=== PATIENT | female | born 1970 | race Caucasian/White ===

== ENCOUNTER 2016-07-21 18:05 | Emergency (ER) | payer OTHER ==
[2016-07-21 19:01] LABS: BILIRUBIN NEGATIVE (NEGATIVE); BLOOD NEGATIVE Ery/uL (NEGATIVE); CLARITY CLEAR (CLEAR); COLOR STRAW (YELLOW); GLUCOSE (U) 3+ mg/dL (NORMAL); KETONE (U) NEGATIVE (NEGATIVE); LEUKOCYTES NEGATIVE Leu/uL (NEGATIVE); NITRITE NEGATIVE (NEGATIVE); PROTEIN NEGATIVE (NEGATIVE); SPECIFIC GRAVITY <=1.005 (1.001-1.030); UROBILINOGEN 0.2 mg/dL (0.2-1.0); pH 5.5 (5.0-9.0)
[2016-07-21 19:08] LABS: BASOPHIL 0.3 % (0-2); EOSINOPHIL 0.8 % (0-5); HCT 40.5 % (37.0-47.0); HGB 13.9 g/dl (12.5-16.0); MCH 29.1 pg (25.0-31.0); MCHC 34.3 g/dL (32.0-36.0); MCV 84.7 fL (78.0-100.0); MONOCYTE 5.5 % (0-12); MPV 12.6 fL (6.0-9.5); NEUTROPHIL 57.4 % (41-80); PLT 206 K/uL (150-400); RBC 4.78 M/uL (4.20-5.40); RDW 13.1 % (11.5-14.0); WBC 6.5 K/uL (4.0-10.5)
[2016-07-21 19:11] LABS: LACTIC ACID 3.9 mmol/L (0.5-2.2)
[2016-07-21 19:12] LABS: ALBUMIN 4.4 g/dL (3.5-5.0); BILIRUBIN - TOTAL 0.3 mg/dL (0.1-1.0); CREATININE 0.6 mg/dL (0.5-1.0); GLOBULIN (CALCULATION) 2.4 g/dL (2.2-4.2); POTASSIUM 3.8 mmol/L (3.5-5.1); TOTAL PROTEIN 6.8 g/dL (6.4-8.3)
== END 2016-07-21 21:15 | disposition home or self-care (01) ==
LOC: FER 18:05
PROVIDERS: Emergency Medicine
DX: R10.9 Unspecified abdominal pain (principal); E11.9 Type 2 diabetes mellitus without complications; I10 Essential (primary) hypertension; Z90.49 Acquired absence of other specified parts of digestive tract; Z79.84 Long term (current) use of oral hypoglycemic drugs; Z79.899 Other long term (current) drug therapy
CPT/HCPCS: 36415; 80053; 81003; 83605; 85025; J1170; Q9967

== ENCOUNTER 2020-09-28 22:56 | Emergency (ER) | payer OTHER ==
[~2020-09-28 22:56] MED LIST: BACTRIM DS TAB1 EACH PO; BASAGLAR K100 UNIT/1 SC; HCTZ12.5 MG PO; IBUPROFEN800 MG PO; KEFLEX500 MG PO; LISINOPRIL40 MG PO; METFORMIN HCL500 MG PO; MOTRIN600 MG PO; NAPROXEN500 MG PO; PROZAC20 MG PO; TOPROL XL 25MG25 MG PO; VENTOLIN HFA IN18 GM INH; ZOFRAN4 MG PO
[2020-09-29] MEDS ORDERED: MOTRIN600 MG PO (02:11)
[2020-09-29] MEDS ORDERED: NORCO 5-325 TA1 EACH PO (02:11)
== END 2020-09-29 02:28 | disposition home or self-care (01) ==
LOC: FER 22:56
DX: S93.402A Sprain of unspecified ligament of left ankle, initial encounter (principal); M17.12 Unilateral primary osteoarthritis, left knee; E11.9 Type 2 diabetes mellitus without complications; I10 Essential (primary) hypertension; Z79.4 Long term (current) use of insulin; Z79.899 Other long term (current) drug therapy; W18.40XA Slipping, tripping and stumbling without falling, unspecified, initial encounter; Y92.009 Unspecified place in unspecified non-institutional (private) residence as the place of occurrence of the external cause
CPT/HCPCS: 73564; 73600; 73630; J1885

== ENCOUNTER → 2021-07-19 | Day surgery (SDC) | payer OTHER ==
[~2021-07-19] VITALS: Ht 152.4 cm; Wt 56.7 kg
[~2021-07-19] MED LIST changes: +MELATONIN5 M2 PO; +NORCO 5-325 TA1 EACH PO; +VENLAFAXINE HCL25 MG PO
[2021-07-19 08:17] LABS: HCG (URINE) SCREEN NEGATIVE (NEGATIVE)
[2021-07-19 09:10] LABS: BUN/CREAT RATIO (CALC) 14.8 RATIO; CREATININE 0.61 mg/dL (0.51-0.95); POTASSIUM 4.4 mmol/L (3.5-5.1)
== END | disposition home or self-care (01) ==
LOC: FAS 07:55
PROVIDERS: Anesthesiology
DX: Z12.11 Encounter for screening for malignant neoplasm of colon (principal); D12.5 Benign neoplasm of sigmoid colon; E11.9 Type 2 diabetes mellitus without complications; J45.909 Unspecified asthma, uncomplicated; M19.90 Unspecified osteoarthritis, unspecified site; I10 Essential (primary) hypertension; Z83.71 Family history of colonic polyps; Z88.8 Allergy status to other drugs, medicaments and biological substances; Z98.51 Tubal ligation status
CPT/HCPCS: 36415; 80048; 84703; J2250; J2704; J7120